=== PATIENT | female | born 1990 | race Caucasian/White ===

== ENCOUNTER → 2016-09-28 | Outpatient (CLI) | payer OTHER ==
[2016-09-28 10:13] LABS: HEMATOCRIT 40.3 % (36.0-47.0); HEMOGLOBIN 13.7 g/dL (12.0-15.5); RED BLOOD COUNT 4.5 x10^6/uL (3.50-5.40); RED CELL DISTRIBUTION WIDTH 12.9 % (11.5-14.5); WHITE BLOOD COUNT 5.5 x10^3/uL (4.0-11.0)
[2016-09-28 10:40] LABS: ALBUMIN/GLOBULIN RATIO 1.1 (1.0-1.7); CREATININE 0.6 mg/dL (0.6-1.0); GFR 120.8; POTASSIUM 3.8 mmol/L (3.5-5.1); TOTAL BILIRUBIN 0.5 mg/dL (0.2-1.0); TOTAL PROTEIN 7.5 g/dL (6.4-8.2)
== END | disposition home or self-care (01) ==
LOC: LAB 09:43
PROVIDERS: ATTEND Family Medicine
DX: Z00.00 Encounter for general adult medical examination without abnormal findings (principal); Z13.820 Encounter for screening for osteoporosis
CPT/HCPCS: 36415; 80053; 80061; 84443; 85027

== ENCOUNTER → 2016-11-01 | Outpatient (CLI) | payer OTHER ==
[2016-11-01 18:12] LABS: TESTOSTERONE TOTAL 37 ng/dL (8-48)
== END | disposition home or self-care (01) ==
LOC: LAB 13:32
PROVIDERS: ATTEND Family Medicine
DX: N92.6 Irregular menstruation, unspecified (principal)
CPT/HCPCS: 36415; 82679; 84403

== ENCOUNTER → 2016-11-30 | Outpatient (CLI) | payer OTHER ==
--- NOTE | 2016-11-30 14:53 | RAD ---
Indication right breast lump 2 weeks ago but no longer present. The area of concern at the 9:00 position of the right breast was examined. In addition to images submitted by the technologist real time examination was performed by me. The patient does not have a strong family history for breast malignancy. The patient states that she can no longer feel the mass which was present two weeks previously. No abnormality in the area examined, about the 9:00 position of the right breast, is seen. IMPRESSION: Normal targeted ultrasound of the right breast. If there is a discrete, palpable, mass in the breast biopsy may be warranted despite unremarkable imaging.
== END | disposition home or self-care (01) ==
LOC: US 14:11
PROVIDERS: ATTEND Nurse Practitioner Women's Health
DX: N63 Unspecified lump in breast (principal)
CPT/HCPCS: 76641

== ENCOUNTER 2017-06-20 09:06 | Observation (INO) | payer OTHER ==
[2017-06-20 11:03] LABS: BILIRUBIN,URINE NEGATIVE (NEG); GLUCOSE,URINE NEGATIVE (NEG); NITRITE,URINE NEGATIVE (NEG); PH,URINE 6.5; PROTEIN,URINE NEGATIVE (NEG-TRACE); UROBILINOGEN,URINE 0.2 mg/dL (0.2 mg/dL)
[2017-06-20 11:23] LABS: BACTERIA,URINE MODERATE /HPF (0-FEW); SQUAMOUS EPITHELIAL CELL,UR MOD /LPF
== END 2017-06-20 12:35 | disposition home or self-care (01) ==
LOC: 3 SO LND 09:06
PROVIDERS: ADMIT Obstetrics & Gynecology; ATTEND Obstetrics & Gynecology
DX: O26.893 Other specified pregnancy related conditions, third trimester (principal); R10.9 Unspecified abdominal pain; Z3A.20 20 weeks gestation of pregnancy
CPT/HCPCS: 81001; 87086; G0378; G0379

== ENCOUNTER → 2017-06-25 | Outpatient (CLI) | payer OTHER ==
--- NOTE | 2017-06-25 14:13 | KCIC ---
Obstetrical ultrasound HISTORY: Uterine size and date discrepancy. FINDINGS: Cervical length is 5.0 cm. heart tones are detected with a heart rate of 153 bpm. Four-chamber heart, kidneys, urinary bladder, cord insertion, stomach and three-vessel cord are documented. Placenta is anterior and towards the right. Amniotic fluid volume is within normal limits. Biparietal diameter, head circumference, abdominal circumference and femur length are measured. Estimated age sonographically is 22 weeks 4 days with estimated weight of 496 g +/- 73 g. Estimated due date is October 25, 2017. The clinical age by LMP is 21 weeks 4 days. IMPRESSION: Single viable intrauterine . Estimated sonographic age is 22 weeks 4 days. Electronically signed by: Keith Cody MD (06/25/2017 2:10 PM) [facility]
== END | disposition home or self-care (01) ==
LOC: KCIC US 10:39
PROVIDERS: ATTEND Obstetrics & Gynecology
DX: O26.842 Uterine size-date discrepancy, second trimester (principal); Z3A.22 22 weeks gestation of pregnancy
CPT/HCPCS: 76805